=== PATIENT | female | born 1940 | race Caucasian/White ===

== ENCOUNTER 2021-03-06 11:33 | Outpatient (CLI) | payer OTHER | END 2021-03-06 11:34 | disposition home or self-care (01) | LOC: CSHMAMMO 11:33 | PROVIDERS: ATTEND Nurse Practitioner Family | DX: Z12.31 Encounter for screening mammogram for malignant neoplasm of breast (principal); Z91.89 Other specified personal risk factors, not elsewhere classified | CPT/HCPCS: 77063; 77067 ==